=== PATIENT | female | born 1965 | race Caucasian/White ===

== ENCOUNTER → 2018-07-12 | Outpatient (CLI) | payer BC, OTHER ==
--- NOTE | 2018-07-12 08:31 | KCIC ---
MRI Lumbar Spine without contrast History: Low back pain, right radiculitis, degenerative disc disease Technique: Multiplanar, multi sequential noncontrast MR imaging was performed of the lumbar spine. Comparison: None Findings: Lumbar vertebral body stature and AP alignment are maintained. There is [id number] degenerative disc disease at L5-S1. There is mild disc desiccation L4-5. Conus terminates near L1. There is no significant marrow edema. There is small hemangioma of the L1 vertebral body. L2-L3: Spinal canal and the neural foramina are adequate. L3-L4: Spinal canal and neural foramina are adequate. There is mild facet degenerative change and buckling of the ligamentum flavum. L4-L5: Spinal canal and neural foramina are adequate. There is minimal buckling of the ligamentum flavum. L5-S1: There is minimal bulge up 2 to 3 mm AP greater in the right lateral recess, near the descending right S1 nerve root without significant displacement. Spinal canal is overall adequate. Neural foramina are adequate. Impression: 1. Minimal bulge at L5-S1 is near the descending right S1 nerve root without significant displacement or spinal stenosis. There is [id number] degenerative disc disease at L5-S1, mild disc desiccation at L4-5. There is no significant neural foramina compromise. Electronically signed by: Mando Haney MD (07/12/2018 8:28 AM) [facility]
== END | disposition home or self-care (01) ==
LOC: KCIC MRI 07:41
PROVIDERS: ATTEND Physical Medicine & Rehabilitation
DX: M51.37 Other intervertebral disc degeneration, lumbosacral region (principal); D18.09 Hemangioma of other sites
CPT/HCPCS: 72148

== ENCOUNTER → 2018-07-26 | Outpatient (CLI) | payer BC, OTHER ==
[~2018-07-26] MED LIST: IOHEXOL 180 MG/ML 10 ML VIAL. ONE; TOPI100T42 PO; TRAZ150T49 PO; ZOLP10TA PO; methylPREDNISolone ACETATE 40 MG/ML VIAL. ONE; methylPREDNISolone ACETATE 80 MG/ML VIAL. ONE
--- NOTE | 2018-07-26 22:06 | PAIN ---
DATE OF SERVICE: 07/26/2018 INITIAL CONSULTATION FOR PAIN CLINIC CHIEF COMPLAINT: Low back and right lower extremity pain. HISTORY OF PRESENT ILLNESS: This is a 53-year-old female who presents with history of pain in the low back, right leg for about 2 years, worse over the past 3 months, so without any specific injury or action that she is aware of, but increasing in the low back radiating to posterior gluteus, posterior thigh, posterior calf, and into the ankle and foot, worse in the morning when she is standing, walking, changing positions. The patient reports a sharp pain, stabbing, shooting, with some numbness in the leg and foot as well as a burning sensation in the back. The patient reports it awakens her from sleep at least 3-4 times a night, does not affect her bowel or bladder control, but does affect her ability to walk to a moderate extent. She is not using any assistive devices, however, to ambulate. The patient has had some physical therapy, doing the stretches and strengthening exercises from that currently, but is not helping the pain significantly. The patient reports no loss of motor function. No left-sided symptoms, but significant fatigability, especially with walking or changing positions, better with sitting or lying down, but again waking her from sleep at night 3-4 times each night. The patient reports a disability rate from 0-10, 10 being the worst, is a 10 with family and home responsibilities, 9 with recreation and sexual behavior, 6 with social activity and occupation, 1 with self-care, and 6 with life support activities. The patient did have an MRI scan of the lumbar spine showing minimal bulge at the L5-S1 level greater than the right lateral recess near the descending right S1 nerve root without significant displacement. PAST MEDICAL HISTORY: Significant for cigarette smoking, quit in 2011, previous blood transfusion, otherwise been in fairly good condition. PAST SURGICAL HISTORY: Previous surgeries include hysterectomy, left foot surgery, breast reduction, tubal ligation, and previous inguinal hernia repair. CURRENT MEDICATIONS: Include topiramate, trazodone, and Ambien. ALLERGIES: The patient is allergic to SULFA. FAMILY HISTORY: Significant for heart disease, lung cancer, ovarian cancer, and other cancers. SOCIAL HISTORY: The patient does not drink alcohol. Quit smoking in 2011. Does not use any illegal, illicit, or recreational drugs. 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 REVIEW OF SYSTEMS: The patient's review of systems is positive for those items mentioned in history of present illness. All systems reviewed and otherwise negative. It is complete, full, and well documented in the patient's chart. PHYSICAL EXAMINATION: VITAL SIGNS: The patient's blood pressure 119/76, pulse is 88, respirations 18, temperature 98.4 degree Fahrenheit, height 5 feet 4 inches, weight 160 pounds. GENERAL: The patient is awake, alert, oriented, appropriate, very pleasant demeanor. HEENT: Head shows normocephalic, atraumatic. Extraocular movements are intact and symmetrical. Oral cavity, mucous membranes are moist and pink. Dentition is intact. NECK: Shows anterior throat supple without palpable lymphadenopathy noted. CHEST: Shows normal on inspection. Breath sounds clear to auscultation bilaterally. HEART: Shows S1, S2 clear. No murmurs auscultated. ABDOMEN: Soft, nontender, and nondistended. No palpable organomegaly is noted. No rebound or guarding demonstrated. BACK: Shows spine grossly in the midline, normal-appearing cervical lordotic curvature, thoracic kyphotic curvature, and lumbar lordotic curvature. Lumbar paraspinous muscle shows symmetrical on inspection. With palpation, it shows some moderate tenderness, but only in the middle and lower distribution of paraspinous muscles, slightly more on the right than the left. No tenderness over the spinous processes, sacrum, or sacroiliac regions. The patient has good rotational motion of lumbar spine, both laterally as well as extension and flexion without significant increase in pain. The patient's lower extremities show deep tendon reflexes 2+ in the patellar, 1+ tendo-calcaneus tendons. Motor exam is 5/5 with dorsiflexion, extension, quadriceps, and hamstring flexion symmetrical. Peripheral pulses are 1+ posterior tibia. No peripheral edema is noted. Lower extremities are warm and dry to touch, equal in color and appearance. Straight leg raise noted to be negative on the left, but positive on the right about 35 degrees or so with some pain in the posterior gluteus and thigh, decreased with knee flexion. Gaenslen's and Arnold's maneuvers are negative bilaterally. The patient is able to stand, stand on her toes without significant difficulty, walks with a normal appearing gait for short distance in the office today, not using any assistive devices to ambulate. SKIN: Shows warm and dry, good turgor. No edema. No sores, rashes, or bruising. IMPRESSION: 1. This is a 53-year-old female with approximate 2-year history, increasing pain over the past 3 months, low back, right lower extremity in a radicular pattern. 2. MRI scan of lumbar spine as noted. 3. Previous history of smoking. PLAN: Options were discussed with the patient including conservative medical management, physical therapy, interventional techniques. She would like to proceed with interventional techniques. We discussed a lumbar epidural steroid injection using descriptions as well as anatomical models to describe the procedure. Risks were then discussed including, but not limited to bleeding, infection, possibility of epidural hematoma, and subsequent neurologic compromise, dural puncture, headaches, spinal cord and/or nerve damage, side effects of steroid medication and poor results regarding pain control. The patient understands and wished to proceed. The patient will return to clinic in approximately 2 weeks for followup, was counseled as to return appointment, activity level, and side effects to be aware of. DIAGNOSES: Lumbar radiculopathy with lumbar degenerative disk disease. PROCEDURE: Lumbar epidural steroid injection, translaminar approach at L5-S1 level using C-arm fluoroscopic guidance under sterile prep and drape using local anesthetic. MEDICATION INJECTED: A total of 120 mg Depo-Medrol plus 10 mL of preservative-free normal saline and 2 mL of contrast. CONDITION AT DISCHARGE: Stable. The patient tolerated procedure well, had no complications. LAURIE GATES MD DR: LIZZIE/gucci JOB#: [id number] / [id number] PARDEEP Costa MD
== END ==
LOC: PNCL 10:07
PROVIDERS: ATTEND Anesthesiology
DX: M51.16 Intervertebral disc disorders with radiculopathy, lumbar region (principal); Z90.710 Acquired absence of both cervix and uterus; Z98.51 Tubal ligation status; Z88.1 Allergy status to other antibiotic agents; Z98.890 Other specified postprocedural states; Z87.891 Personal history of nicotine dependence
CPT/HCPCS: 62323; J1030; J1040; Q9965

== ENCOUNTER → 2018-08-08 | Outpatient (CLI) | payer BC, OTHER ==
--- NOTE | 2018-08-08 13:32 | PAIN ---
DATE OF SERVICE: 08/08/2018 PROGRESS NOTE FOR PAIN CLINIC DIAGNOSES: Lumbar radiculopathy with lumbar degenerative disk disease. HISTORY OF PRESENT ILLNESS: The patient is a 53-year-old female who returns for followup status post lumbar epidural steroid injection x 1. The patient reports about 50% improvement for the first week or so. The patient reports that after that the pain returned in the low back, right lower extremity, posterior gluteus, posterior thigh, posterior calf, radiating some in the left calf as well and had some cramps since the injection as well. The patient reports her pain is burning, cramping in the back, sharp and shooting into the legs, worse with walking, standing, change in positions. Initially, she was increasing her activity, distance walking, doing household activities and traveling with greater ease but is returning now, not to baseline but still significant in the low back and right leg. The patient reports it is 8 on a scale of 10 at its worst in the past week, 6 on average, 5 at its least and is a 6 today. The patient reports no new motor or sensory deficits and no new bowel or bladder incontinence or other complaints. PHYSICAL EXAMINATION: VITAL SIGNS: The patient's blood pressure 142/85, pulse 93, respirations 18 and temperature is 98.2 degrees Fahrenheit. Height is 5 feet 7 inches and weight is 190 pounds. GENERAL: The patient is awake, alert, oriented, appropriate and very pleasant demeanor. HEENT: Head shows normocephalic and atraumatic. Extraocular movements are intact and symmetrical. Oral cavity, mucous membranes are moist and pink. Dentition is intact. NECK: Shows anterior throat supple without palpable lymphadenopathy noted. Swallow reflex is symmetrical. CHEST: Shows normal on inspection. Breath sounds clear to auscultation bilaterally. HEART: Shows S1 and S2 clear. No murmurs auscultated. ABDOMEN: Soft, nontender and nondistended. No palpable organomegaly is noted. No rebound or guarding demonstrated. BACK: Shows spine grossly in the midline. Normal appearing thoracic kyphosis and lumbar lordotic curvature. Lumbar paraspinous muscle shows symmetrical on inspection, with palpation shows some moderate tenderness diffusely but only diffusely without radiation. The patient has good rotational motion of the lumbar spine, both laterally as well as extension and flexion without significant difficulty. EXTREMITIES: The patient's lower extremities show deep tendon reflexes at 2+ patellar, 1+ tendo-calcaneus tendons. Motor exam is 5/5 with dorsiflexion, extension, quadriceps and hamstring flexion and symmetrical. Peripheral pulses are 1+ posterior tibia. No peripheral edema is noted bilaterally. Options were discussed with the patient. The patient's old chart was reviewed as well as her current medication regimen updated. Current review of systems updated today as well. We will proceed with a second lumbar epidural steroid injection today with fluoroscopic guidance. Risks were again discussed including, but not limited to bleeding, infection, possibility of epidural hematoma, subsequent neurologic compromise, dural puncture, headaches, spinal cord and/or nerve damage, side effects of steroid medication and poor results regarding pain control. The patient understands and wished to proceed. The patient will return to the clinic in approximately 2 weeks for followup, was counseled as to return appointment, activity level and side effects to be aware of. DIAGNOSES: Lumbar radiculopathy with lumbar degenerative disk disease. PROCEDURE: Lumbar epidural steroid injection, translaminar approach, L5-S1 level using C-arm fluoroscopic guidance under sterile prep and drape using local anesthetic. MEDICATION INJECTED: A total of 120 mg Depo-Medrol plus 10 mL of preservative-free normal saline and 2 mL of contrast. CONDITION AT DISCHARGE: Stable. The patient tolerated the procedure well and had no complications. LAURIE GATES MD DR: LIZZIE/gucci JOB#: [id number] / [id number]
== END ==
LOC: PNCL 09:53
PROVIDERS: ATTEND Anesthesiology
DX: M51.16 Intervertebral disc disorders with radiculopathy, lumbar region (principal)
CPT/HCPCS: 62323; J1030; J1040; Q9965